=== PATIENT | female | born 1995 | race American Indian/Alaskan Native ===

== ENCOUNTER 2019-07-21 11:17 | Emergency (ER) | payer SELFPAY ==
[2019-07-21 11:41] VITALS: BP 112/52
[2019-07-21 13:52] LABS: Basophils # (Auto) 0.1 K/mm3 (0.0-0.1); Basophils % (Auto) 0.5 % (0.0-1.8); Eosinophils # (Auto) 0.2 K/mm3 (0.0-0.4); Eosinophils % (Auto) 1.5 % (0.0-4.3); Hemoglobin 9.5 gm/dl (10.1-14.3); Mean Corpuscular HGB Conc 31 % (30-34); Mean Corpuscular Volume 76 fl (79-97); Monocytes # (Auto) 0.8 K/mm3 (0.0-0.8); Monocytes % (Auto) 6.4 % (0.0-7.3); Platelet Count 239 K/mm3 (140-440); Red Blood Count 4.09 M/mm3 (3.65-5.03); Red Cell Distribution Width 19.2 % (13.2-15.2)
[2019-07-21 14:11] LABS: BUN/Creatinine Ratio 14; Blood Urea Nitrogen 11 mg/dL (7-17); Hemolysis Index 8
--- NOTE | 2019-07-21 15:56 | Ultrasound Report ---
ULTRASOUND OBSTETRIC INDICATION: , syncope. TECHNIQUE: Transabdominal and Transvaginal. COMPARISON: None available. FINDINGS: GESTATIONAL SAC: None seen. YOLK SAC: None seen. EMBRYO/FETUS: None seen. ADNEXA: No significant abnormality. FREE FLUID: None. ADDITIONAL FINDINGS: A probable uterine fundal fibroid measures 4.7 x 4.6 x 4.8 cm. IMPRESSION: 1. No sonographic evidence of an intrauterine or ectopic . 2. Probable uterine fibroid as above. Signer Name: Jarod Figueroa MD Signed: 07/21/2019 3:51 PM Workstation Name: [id number]
--- NOTE | 2019-07-21 16:32 | Emergency Department Report ---
ED General Adult HPI - General Chief complaint: Headache Stated complaint: FALL INJURY/HEADACHE Time Seen by Provider: 07/21/19 12:21 Source: patient Mode of arrival: Ambulatory Limitations: No Limitations - History of Present Illness Initial comments: Patient is a 23-year-old F [place] female states she had a syncopal episode yesterday while at work. Patient states she felt fine before arriving. She states she stood up and felt dizzy and the next thing she knew she was lying on the ground with people surrounding her. Patient was told that she did strike the back of her head. Patient has had a persistent mild headache since the incident. She denies any nausea vomiting diarrhea heavy periods. She does have a history of anemia but is not taking any medications at this time. - Related Data Allergies Allergy/AdvReac Type Severity Reaction Status Date / Time No Known Allergies Allergy Unverified 07/21/19 11:39 ED Review of Systems ROS: Stated complaint: FALL INJURY/HEADACHE Other details as noted in HPI Comment: All other systems reviewed and negative ED Past Medical Hx - Past Medical History Previous Medical History?: Yes Hx Asthma: Yes - Surgical History Past Surgical History?: Yes Additional Surgical History: Tonsilectomy - Social History Smoking Status: Current Every Day Smoker Substance Use Type: None ED Physical Exam - General Limitations: No Limitations General appearance: alert, in no apparent distress - Head Head exam: Present: atraumatic, normocephalic - Eye Eye exam: Present: normal appearance, PERRL, EOMI - ENT ENT exam: Present: mucous membranes moist - Neck Neck exam: Present: normal inspection, full ROM. Absent: tenderness - Respiratory Respiratory exam: Present: normal lung sounds bilaterally. Absent: respiratory distress, wheezes, rales, rhonchi - Cardiovascular Cardiovascular Exam: Present: regular rate, normal rhythm, normal heart sounds. Absent: systolic murmur, diastolic murmur, rubs, gallop - GI/Abdominal GI/Abdominal exam: Present: soft, normal bowel sounds - Extremities Exam Extremities exam: Present: normal inspection - Back Exam Back exam: Present: normal inspection - Neurological Exam Neurological exam: Present: alert, oriented X3 - Psychiatric Psychiatric exam: Present: normal affect, normal mood - Skin Skin exam: Present: warm, dry, intact, normal color. Absent: rash ED Course Vital Signs 07/21/19 11:40 Temperature 98.7 F Pulse Rate 82 Respiratory 18 Rate Blood Pressure 112/52 O2 Sat by Pulse 100 Oximetry - Reevaluation(s) Reevaluation #1: Patient's laboratory studies are within normal limits. Initially was going to do a CT of the patient's head considering that she has persistent headache since striking her head. Patient's test was positive and CT was canceled. Ultrasound showed no IUP at this time the patient likely is approximately 4 weeks given her beta quant. Patient's is likely the cause of the patient's syncope. 07/21/19 16:30 ED Medical Decision Making - Lab Data Result diagrams: 07/21/19 12:30 07/21/19 12:30 Lab Results 07/21/19 07/21/19 07/21/19 Range/Units 12:30 12:30 12:30 WBC 11.8 H (4.5-11.0) K/mm3 RBC 4.09 (3.65-5.03) M/mm3 Hgb 9.5 L (10.1-14.3) gm/dl Hct 31.0 (30.3-42.9) % MCV 76 L (79-97) fl MCH 23 L (28-32) pg MCHC 31 (30-34) % RDW 19.2 H (13.2-15.2) % Plt Count 239 (140-440) K/mm3 Lymph % (Auto) 17.0 (13.4-35.0) % Canyon % (Auto) 6.4 (0.0-7.3) % Eos % (Auto) 1.5 (0.0-4.3) % Baso % (Auto) 0.5 (0.0-1.8) % Lymph # 2.0 (1.2-5.4) K/mm3 Canyon # 0.8 (0.0-0.8) K/mm3 Eos # 0.2 (0.0-0.4) K/mm3 Baso # 0.1 (0.0-0.1) K/mm3 Seg Neutrophils % 74.6 H (40.0-70.0) % Seg Neutrophils # 8.8 H (1.8-7.7) K/mm3 Sodium 138 (137-145) mmol/L Potassium 3.9 (3.6-5.0) mmol/L Chloride 102.3 (98-107) mmol/L Carbon Dioxide 18 L (22-30) mmol/L Anion Gap 22 mmol/L BUN 11 (7-17) mg/dL Creatinine 0.8 (0.7-1.2) mg/dL Estimated GFR > 60 ml/min BUN/Creatinine Ratio 14 % Glucose 95 (65-100) mg/dL Calcium 9.0 (8.4-10.2) mg/dL HCG, Qual Positive (Negative) HCG, Quant (0-4) mIU/mL 07/21/19 Range/Units 12:30 WBC (4.5-11.0) K/mm3 RBC (3.65-5.03) M/mm3 Hgb (10.1-14.3) gm/dl Hct (30.3-42.9) % MCV (79-97) fl MCH (28-32) pg MCHC (30-34) % RDW (13.2-15.2) % Plt Count (140-440) K/mm3 Lymph % (Auto) (13.4-35.0) % Canyon % (Auto) (0.0-7.3) % Eos % (Auto) (0.0-4.3) % Baso % (Auto) (0.0-1.8) % Lymph # (1.2-5.4) K/mm3 Canyon # (0.0-0.8) K/mm3 Eos # (0.0-0.4) K/mm3 Baso # (0.0-0.1) K/mm3 Seg Neutrophils % (40.0-70.0) % Seg Neutrophils # (1.8-7.7) K/mm3 Sodium (137-145) mmol/L Potassium (3.6-5.0) mmol/L Chloride (98-107) mmol/L Carbon Dioxide (22-30) mmol/L Anion Gap mmol/L BUN (7-17) mg/dL Creatinine (0.7-1.2) mg/dL Estimated GFR ml/min BUN/Creatinine Ratio % Glucose (65-100) mg/dL Calcium (8.4-10.2) mg/dL HCG, Qual (Negative) HCG, Quant 1825 H (0-4) mIU/mL - Radiology Data Radiology results: image reviewed (No IUP found) - Medical Decision Making Patient is been encouraged to hydrate well. Patient given SHOT BLASTER for follow-up. Critical care attestation.: If time is entered above; I have spent that time in minutes in the direct care of this critically ill patient, excluding procedure time. ED Disposition Clinical Impression: Syncope and collapse Qualifiers: Weeks of gestation: less than 8 weeks Qualified Code(s): Z3A.01 - Less than 8 weeks gestation of Closed head injury Qualifiers: Encounter type: initial encounter Qualified Code(s): S09.90XA - Unspecified injury of head, initial encounter Disposition: DC- TO HOME OR SELFCARE Is pt being admited?: No Does the pt Need Aspirin: No Condition: Stable Instructions: Syncope (ED), (ED), Minor Head Injury (ED) Referrals: PRIMARY CARE, [Primary Care Provider] - 3-5 Days Time of Disposition: 16:33
== END 2019-07-21 17:14 | disposition home or self-care (01) ==
LOC: ED 11:17
DX: O26.891 Other specified pregnancy related conditions, first trimester (principal); O99.331 Smoking (tobacco) complicating pregnancy, first trimester; O99.511 Diseases of the respiratory system complicating pregnancy, first trimester; S09.90XA Unspecified injury of head, initial encounter; R55 Syncope and collapse; J45.909 Unspecified asthma, uncomplicated; Z90.49 Acquired absence of other specified parts of digestive tract; Z79.899 Other long term (current) drug therapy; Z3A.01 Less than 8 weeks gestation of pregnancy; W18.30XA Fall on same level, unspecified, initial encounter; Y93.89 Activity, other specified; Y92.89 Other specified places as the place of occurrence of the external cause; Y99.8 Other external cause status
CPT/HCPCS: 36415; 76801; 76817; 80048; 84702; 84703; 85025

== ENCOUNTER 2020-02-15 07:22 | Emergency (ER) | payer MEDICAID ==
[2020-02-15 07:29] VITALS: BP 150/89
[2020-02-15 08:08] LABS: Basophils # (Auto) 0.1 K/mm3 (0.0-0.1); Basophils % (Auto) 0.6 % (0.0-1.8); Eosinophils # (Auto) 0.2 K/mm3 (0.0-0.4); Hematocrit 32.7 % (30.3-42.9); Hemoglobin 10.5 gm/dl (10.1-14.3); Lymphocytes # (Auto) 1.8 K/mm3 (1.2-5.4); Lymphocytes % (Auto) 19.1 % (13.4-35.0); Mean Corpuscular HGB Conc 32 % (30-34); Mean Corpuscular Volume 82 fl (79-97); Monocytes # (Auto) 0.6 K/mm3 (0.0-0.8); Monocytes % (Auto) 6.7 % (0.0-7.3); Platelet Count 245 K/mm3 (140-440); Red Blood Count 3.98 M/mm3 (3.65-5.03); Red Cell Distribution Width 17.5 % (13.2-15.2)
[2020-02-15 08:28] LABS: BUN/Creatinine Ratio 11; Blood Urea Nitrogen 10 mg/dL (7-17); Calcium 9.1 mg/dL (8.4-10.2); Hemolysis Index 2
[2020-02-15 09:19] LABS: Bacteria,Urine 1+ /HPF (Negative); Bilirubin,Urine NEG (Negative); Blood,Urine NEG (Negative); Color,Urine Yellow (Yellow); Mucus,Urine 3+ /HPF; Protein,Urine <15 mg/dL mg/dL (Negative)
[2020-02-15 09:21] LABS: HCG Qualitative,Urine Negative (Negative)
--- NOTE | 2020-02-15 10:08 | Cat Scan Report ---
NONENHANCED CT SCAN OF THE HEAD: INDICATION / CLINICAL INFORMATION: 24 years Female; headache, dizziness, visual changes. TECHNIQUE: Routine CT head without contrast. All CT scans at this location are performed using CT dos e reduction for ALARA by means of automated exposure control. COMPARISON: None. FINDINGS: BRAIN / INTRACRANIAL CONTENTS: No acute hemorrhage, mass effect, midline shift, hydrocephalus, or acu te, large territorial infarct. No chronic infarct or focal atrophy. Normal brain volume and ventricul ar/sulcal size for age. No significant white matter abnormality. CRANIOCERVICAL JUNCTION: No significant abnormality. ORBITS: No significant abnormality of visualized orbits. SINUSES / MASTOIDS: No significant abnormality of the visualized paranasal sinuses or mastoid air tamy ls. ADDITIONAL FINDINGS: None. IMPRESSION: Normal nonenhanced CT scan of the brain Signer Name: Janny Ramos MD Signed: 02/15/2020 10:03 AM Workstation Name: [email or web address]
--- NOTE | 2020-02-15 11:29 | Emergency Department Report ---
ED Headache HPI - General Chief Complaint: Headache Stated Complaint: HEADACHE,NAUSEA,ABD PAIN Time Seen by Provider: 02/15/20 09:16 - History of Present Illness Initial Comments: 24-year-old obese [place] female just emerged from complaining of a 1 week history of waxing and waning headaches of unknown etiology the headaches varies based on severity but sometimes gets to the point where it stops her from driving she has diplopia. Headaches are sometimes associated with with dizziness and mild visual changes she reports no fever, no nausea, no vomiting, no chest pain or palpitations. No neck pain, no trauma. Timing/Duration: 1 week Quality: mild, moderate Head Injury Location: parietal Associated Symptoms: vision changes, other (dizziness). denies: facial pain, fever/chills, nausea/vomiting, nasal congestion, seizures, stiff neck Allergies/Adverse Reactions: Allergies No Known Allergies Allergy (Unverified 07/21/19 11:39) Home Medications: Ambulatory Orders Butalb/Acetaminophen/Caffeine [Fioricet 50-300-40 mg CAP] 1 cap PO Q6HR PRN #14 cap 02/15/20 ED Review of Systems ROS: Stated complaint: HEADACHE,NAUSEA,ABD PAIN Other details as noted in HPI Comment: All other systems reviewed and negative ED Past Medical Hx - Past Medical History Previous Medical History?: Yes Hx Asthma: Yes - Surgical History Past Surgical History?: Yes Additional Surgical History: Tonsilectomy - Social History Smoking Status: Light Tobacco Smoker Substance Use Type: Alcohol - Medications Home Medications: Home Medications Medication Instructions Recorded Confirmed Last Taken Type Butalb/Acetaminophen/Caffeine 1 cap PO Q6HR PRN #14 cap 02/15/20 Unknown Rx [Fioricet 50-300-40 mg CAP] ED Physical Exam - General Limitations: No Limitations General appearance: alert, in no apparent distress - Head Head exam: Present: atraumatic, normocephalic - Eye Eye exam: Present: normal appearance - ENT ENT exam: Present: mucous membranes moist - Neck Neck exam: Present: normal inspection - Respiratory Respiratory exam: Present: normal lung sounds bilaterally. Absent: respiratory distress - Cardiovascular Cardiovascular Exam: Present: regular rate, normal rhythm. Absent: systolic murmur, diastolic murmur, rubs, gallop - GI/Abdominal GI/Abdominal exam: Present: soft, normal bowel sounds - Extremities Exam Extremities exam: Present: normal inspection - Back Exam Back exam: Present: normal inspection - Neurological Exam Neurological exam: Present: alert, oriented X3 - Psychiatric Psychiatric exam: Present: normal affect, normal mood - Skin Skin exam: Present: warm, dry, intact, normal color. Absent: rash ED Course Vital Signs 02/15/20 07:27 Temperature 98.0 F Pulse Rate 76 Respiratory 20 Rate Blood Pressure 150/89 O2 Sat by Pulse 99 Oximetry ED Medical Decision Making - Lab Data Result diagrams: 02/15/20 07:41 02/15/20 07:41 - Medical Decision Making This patient presents with a headache most consistent with migraine. Differential diagnosis includes migraine versus tension type headache. No headache red flags. Neurologic exam without evidence of meningismus, focal neurologic findings.Based on the patient's history and physical there is very low clinical suspicion for significant intracranial pathology. The headache was NOT sudden onset, NOT maximal at onset, there are NO neurologic findings, the patient does NOT have a fever, the patient does NOT have any jaw claudication, the patient does NOT endorse a clotting disorder, patient DENIES any trauma or eye pain and the headache is NOT associated with dizziness or ataxia. Presentation not consistent with acute intracranial bleed to include SAH (lack of risk factors, headache history). Presentation not consistent with acute COMMERCIAL DIRECTOR infection to include meningitis or brain abscess, Temporal arteritis unlikely, as is acute angle closure glaucoma given history and physical findings. Presentation not consistent with other acute, emergent causes of headache at this time. Plan to treat symptomatically with pain medication. No indication for imaging/LP at this time. Plan: pain medication,, serial reassessment Critical care attestation.: If time is entered above; I have spent that time in minutes in the direct care of this critically ill patient, excluding procedure time. ED Disposition Clinical Impression: Cephalgia Disposition: DC-01 TO HOME OR SELFCARE Is pt being admited?: No Does the pt Need Aspirin: No Condition: Stable Instructions: Migraine Headache, [id number], General Headache Without Cause, Cervicogenic Headache Prescriptions: Butalb/Acetaminophen/Caffeine [Fioricet 50-300-40 mg CAP] 1 cap PO Q6HR PRN #14 cap PRN Reason: headache Referrals: PRIMARY CARE, [Primary Care Provider] - 3-5 Days [facility] [Provider Group] - 3-5 Days
[2020-02-15] MEDS ORDERED: oxyCODONE /ACETAMINOPHEN 5-325MG TAB PO ONE (11:31)
== END 2020-02-15 12:17 | disposition home or self-care (01) ==
LOC: ED 07:22
DX: R51.9 Headache, unspecified (principal); J45.909 Unspecified asthma, uncomplicated; F17.200 Nicotine dependence, unspecified, uncomplicated; Z98.890 Other specified postprocedural states; Z79.899 Other long term (current) drug therapy
CPT/HCPCS: 36415; 70450; 80048; 81001; 81025; 84703; 85025

== ENCOUNTER 2021-03-15 04:12 | Emergency (ER) | payer MEDICAID ==
[2021-03-15 04:58] LABS: Basophils # (Auto) 0.1 K/mm3 (0.0-0.1); Basophils % (Auto) 0.4 % (0.0-1.8); Eosinophils % (Auto) 0.1 % (0.0-4.3); Hematocrit 31.8 % (30.3-42.9); Hemoglobin 9.9 gm/dl (10.1-14.3); Lymphocytes # (Auto) 1.4 K/mm3 (1.2-5.4); Lymphocytes % (Auto) 8.3 % (13.4-35.0); Mean Corpuscular HGB Conc 31 % (30-34); Mean Corpuscular Volume 84 fl (79-97); Monocytes # (Auto) 0.5 K/mm3 (0.0-0.8); Monocytes % (Auto) 3.1 % (0.0-7.3); Platelet Count 230 K/mm3 (140-440); Red Blood Count 3.78 M/mm3 (3.65-5.03); Red Cell Distribution Width 15.8 % (13.2-15.2)
[2021-03-15] MEDS ORDERED: SODIUM CHLORIDE 0.9% 1000 ML 1,000 ML IV ONE (04:59)
[2021-03-15 05:06] LABS: BUN/Creatinine Ratio 8; Blood Urea Nitrogen 7 mg/dL (7-17); Calcium 8.8 mg/dL (8.4-10.2); Hemolysis Index 1
--- NOTE | 2021-03-15 05:06 | Emergency Department Report ---
<GRETCHEN ALEMAN - Last Filed: 03/15/21 06:42> ED Abdominal Pain HPI - General Chief Complaint: Abdominal Pain Stated Complaint: ABDOMINAL PAIN Source: EMS Mode of arrival: Stretcher Limitations: No Limitations - History of Present Illness Initial Comments: 25-year-old -[place] female presents to the emergency room complaining of abdominal pain that she has had all day. Patient states movement makes it worse. She admits to nausea no vomiting. Patient does admit that she smokes marijuana and black in miles and socially drinks. She does admit to a headache. She has been taken ibuprofen daily because of injury. She denies any dysuria, diarrhea or constipation. MD Complaint: abdominal pain Onset/Timin -: hour(s) Location: RUQ, epigastric Radiation: none Severity scale (0 -10): 9 Quality: stabbing, sharp Consistency: constant Improves With: nothing Worsens With: movement Associated Symptoms: nausea. denies: vomiting, diarrhea, fever, constipation, dysuria, hematemesis, hematochezia, melena, hematuria - Related Data Previous Rx's Medication Instructions Recorded Last Taken Type Butalb/Acetaminophen/Caffeine 1 cap PO Q6HR PRN #14 cap 02/15/20 Unknown Rx [Fioricet 50-300-40 mg CAP] Ciprofloxacin HCl 500 mg PO BID #14 tablet 03/15/21 Unknown Rx Ondansetron [Zofran Odt] 4 mg PO Q8HR PRN #12 tab.rapdis 03/15/21 Unknown Rx metroNIDAZOLE [Flagyl] 500 mg PO Q12HR #14 tab 03/15/21 Unknown Rx Allergies Allergy/AdvReac Type Severity Reaction Status Date / Time No Known Allergies Allergy Verified 03/15/21 04:16 ED Review of Systems Comment: All other systems reviewed and negative ED Past Medical Hx - Past Medical History Hx Asthma: Yes - Surgical History Additional Surgical History: Tonsilectomy - Social History Smoking Status: Light Tobacco Smoker Substance Use Type: Alcohol - Medications Home Medications: Home Medications Medication Instructions Recorded Confirmed Last Taken Type Butalb/Acetaminophen/Caffeine 1 cap PO Q6HR PRN #14 cap 02/15/20 Unknown Rx [Fioricet 50-300-40 mg CAP] Ciprofloxacin HCl 500 mg PO BID #14 tablet 03/15/21 Unknown Rx Ondansetron [Zofran Odt] 4 mg PO Q8HR PRN #12 tab.rapdis 03/15/21 Unknown Rx metroNIDAZOLE [Flagyl] 500 mg PO Q12HR #14 tab 03/15/21 Unknown Rx ED Physical Exam - General Limitations: No Limitations General appearance: alert, in no apparent distress - Head Head exam: Present: atraumatic, normocephalic - Eye Eye exam: Present: normal appearance - ENT ENT exam: Present: mucous membranes moist - Neck Neck exam: Present: normal inspection - Respiratory Respiratory exam: Present: normal lung sounds bilaterally. Absent: respiratory distress - Cardiovascular Cardiovascular Exam: Present: regular rate, normal rhythm. Absent: systolic murmur, diastolic murmur, rubs, gallop - GI/Abdominal GI/Abdominal exam: Present: soft, tenderness (Epigastric and right upper quadrant), guarding, normal bowel sounds - Extremities Exam Extremities exam: Present: normal inspection, full ROM - Back Exam Back exam: Present: normal inspection - Neurological Exam Neurological exam: Present: alert, oriented X3 - Psychiatric Psychiatric exam: Present: normal affect, normal mood - Skin Skin exam: Present: warm, dry, intact, normal color. Absent: rash ED Medical Decision Making - Lab Data Result diagrams: 03/15/21 04:40 03/15/21 04:40 - Radiology Data Radiology results: report reviewed [address] [address] Ultrasound Report Signed Patient: MARIO ZUNIGA MR#: [id number] : 1995 Acct:[id number] Age/Sex: 25 / F ADM Date: 03/15/21 Loc: ED Attending Dr: Ordering Physician: NUPUR HONG Date of Service: 03/15/21 Procedure(s): US abdomen complete Accession Number(s): [id number] cc: NUPUR HONG ULTRASOUND ABDOMEN, COMPLETE INDICATION / CLINICAL INFORMATION: Epigastric and ruq ttp, pain. COMPARISON: None available. FINDINGS: PANCREAS: Visualized portions of the pancreas are within normal limits. ABDOMINAL AORTA: No significant abnormality. IVC: No significant abnormality. LIVER: Liver measures 16.9 cm. The liver demonstrates a normal echogenicity and morphology. PORTAL VEIN: Normal hepatopedal blood flow in the main portal vein. GALLBLADDER: The gallbladder is unremarkable. There is no cholelithiasis, gallbladder wall thickening, or pericholecystic fluid. BILE DUCTS: Common bile duct measures 4 mm. No significant abnormality. KIDNEYS: Right: No significant abnormality. Left: No significant abnormality. SPLEEN: No significant abnormality. FREE FLUID: None. ADDITIONAL FINDINGS: None. IMPRESSION: 1. No significant sonographic abnormality of the abdomen. Signer Name: Rosana Reese MD Signed: 03/15/2021 6:33 AM Workstation Name: [id number] Transcribed By: DANY Dictated By: ROSANA REESE MD Electronically Authenticated By: ROSANA REESE MD Signed Date/Time: 03/15/21632 DD/ 1 TD/TT: - Medical Decision Making 25-year-old -[place]ian female presents to the emergency room complaining of abdominal pain that she has had all day. Patient states movement makes it worse. She admits to nausea no vomiting. Patient does admit that she smokes marijuana and black in miles and socially drinks. She does admit to a headache. She has been taken ibuprofen daily because of injury. She denies any dysuria, diarrhea or constipation. CBC CMP hCG urinalysis lipase INT normal saline Zofran ultrasound has been ordered. The patient's care has been transferred to and accepted by Garrison Dietz. We discussed: The patient's chief complaints; labs and imaging that have been completed and those that are still pending; any treatment provided and the patient's response to treatment; any significant change in condition; the treatment plan prior to the transfer of care. The accepting provider will follow up on all pending labs and imaging and make any necessary changes to the current impression and/or treatment plan. The accepting physician/midlevel is now responsible for the patient's care and final disposition. ED Disposition Clinical Impression: Enterocolitis Nausea & vomiting Qualifiers: Vomiting type: unspecified Qualified Code(s): R11.2 - Nausea with vomiting, unspecified Abdominal pain Qualifiers: Abdominal location: unspecified location Qualified Code(s): R10.9 - Unspecified abdominal pain UTI (urinary tract infection) Qualifiers: Urinary tract infection type: site unspecified Hematuria presence: without hematuria Qualified Code(s): N39.0 - Urinary tract infection, site not specified Disposition: 01 HOME / SELF CARE / HOMELESS Condition: Stable Instructions: Abdominal Pain, Adult, Nausea and Vomiting, Adult, Ciprofloxacin tablets, Metronidazole tablets or capsules, Abdominal Pain (ED) Additional Instructions: Follow-up with a primary care and parts salesperson doctor in 3-5 days or if symptoms worsen and continue return to emergency room as soon as possible. As instructed to you, while taking these medications do not drink any alcohol or perform any strenuous activities. Prescriptions: Ciprofloxacin HCl 500 mg PO BID #14 tablet metroNIDAZOLE [Flagyl] 500 mg PO Q12HR #14 tab Ondansetron [Zofran Odt] 4 mg PO Q8HR PRN #12 tab.rapdis PRN Reason: Nausea Referrals: PRIMARY MD [facility] [Primary Care Provider] - 3-5 Days TIFFANY ENGLE MD [Staff Physician] - 3-5 Days [facility] [Provider Group] - 3-5 Days Forms: Work/School Release Form(ED) <GARRISON RENTERIA - Last Filed: 03/15/21 14:17> ED Review of Systems ROS: Stated complaint: ABDOMINAL PAIN Other details as noted in HPI ED Course Vital Signs 03/15/21 03/15/21 03/15/21 04:15 06:54 13:29 Temperature 99.3 F Pulse Rate 92 H 84 Respiratory 18 16 14 Rate Blood Pressure 145/82 152/77 [Left] O2 Sat by Pulse 99 100 Oximetry - Reevaluation(s) Reevaluation #1: 03/15/21 07:57 At this time, patient is resting comfortably with no acute signs of distress. Pain is under control. CT scan has been reviewed and patient is notified of the results. At this time I will order Levaquin and Flagyl. A p.o. challenge will also be obtained. Will reevaluate patient and if able to keep p.o. challenge vital signs stable with pain under control I will discharge patient with appropriate follow-up. ED Medical Decision Making - Lab Data Result diagrams: 03/15/21 04:40 03/15/21 04:40 - Radiology Data [facility] [address] [place] [address] Cat Scan Report Signed Patient: MARIO ZUNIGA MR#: [id number] : 1995 Acct:[id number] Age/Sex: 25 / F ADM Date: 03/15/21 Loc: ED Attending Dr: Ordering Physician: NUPUR HONG Date of Service: 03/15/21 Procedure(s): CT abdomen pelvis w con Accession Number(s): [id number] cc: NUPUR HONG CT abdomen pelvis w con INDICATION / CLINICAL INFORMATION: abd pain.. TECHNIQUE: Axial CT images were obtained through the abdomen and pelvis after 100 cc of Omnipaque [address] scans at this location are performed using CT dose reduction for ALARA by means of automated exposure control. COMPARISON: None available. FINDINGS: LOWER CHEST: No significant abnormality LIVER: No significant abnormality GALLBLADDER/BILIARY TREE: No significant abnormality PANCREAS: No significant abnormality SPLEEN: No significant abnormality ADRENALS: No significant abnormality KIDNEYS / URETER: No significant abnormality URINARY BLADDER: No significant abnormality REPRODUCTIVE ORGANS: No significant abnormality STOMACH / BOWEL: Stomach is unremarkable. Mild fluid-filled small bowel within the left abdomen. Mild pericolonic inflammatory stranding involving the ascending colon. No significant colonic wall thickening. The ascending colon is fluid-filled. No extraluminal fluid or gas identified. The appendix is normal. LYMPH NODES: No significant adenopathy. VASCULATURE: No significant abnormality. OTHER: No free air, free fluid, or focal fluid collection is identified. SKELETAL SYSTEM: No acute osseous findings. IMPRESSION: 1. A few loops of fluid-filled small bowel noted within the left abdomen with moderate amount of fluid within the ascending colon and mild pericolonic inflammatory stranding. Findings are suspicious for a mild infectious or inflammatory enterocolitis. 2. No other acute abnormality. Signer Name: Rosana Reese MD Signed: 03/15/2021 7:47 AM Workstation Name: [id number] Transcribed By: DANY Dictated By: ROSANA REESE MD Electronically Authenticated By: ROSANA REESE MD Signed Date/Time: 03/15/21746 DD/ 6 TD/TT: - Medical Decision Making Patient was originally seen by Britany Huang and signed out to me for pending CT scan. CT of abdomen obtained and dictated by the radiologist. Patient is notified of the report with no questions noted by the patient. Vital signs are stable prior to discharge. Patient received medical treatment in the ED which patient stated symptoms has resovled and subsided. Was instructed note to operate any machinery due to possible drowsiness and stated someone will drive the patient home. A by mouth challenge has been obtained and patient tolerated well with no nausea vomiting. Patient was also instructed to Follow-up with a primary care and parts salesperson doctor in 3-5 days or if symptoms worsen and continue return to emergency room as soon as possible. At time of discharge, the patient does not seem toxic or ill in appearance. No acute signs of distress noted. Patient agrees to discharge treatment plan of care. No further questions noted by the patient. Critical care attestation.: If time is entered above; I have spent that time in minutes in the direct care of this critically ill patient, excluding procedure time. ED Disposition Is pt being admited?: No Does the pt Need Aspirin: No Time of Disposition: 12:59
[2021-03-15 05:11] LABS: Alanine Aminotransferase < 5 units/L (7-56)
[2021-03-15 06:37] LABS: Bilirubin,Urine NEG (Negative); Blood,Urine NEG (Negative); Color,Urine Yellow (Yellow); Mucus,Urine FEW /HPF; Protein,Urine <15 mg/dL mg/dL (Negative)
--- NOTE | 2021-03-15 06:38 | Ultrasound Report ---
ULTRASOUND ABDOMEN, COMPLETE INDICATION / CLINICAL INFORMATION: Epigastric and ruq ttp, pain. COMPARISON: None available. FINDINGS: PANCREAS: Visualized portions of the pancreas are within normal limits. ABDOMINAL AORTA: No significant abnormality. IVC: No significant abnormality. LIVER: Liver measures 16.9 cm. The liver demonstrates a normal echogenicity and morphology. PORTAL VEIN: Normal hepatopedal blood flow in the main portal vein. GALLBLADDER: The gallbladder is unremarkable. There is no cholelithiasis, gallbladder wall thickening , or pericholecystic fluid. BILE DUCTS: Common bile duct measures 4 mm. No significant abnormality. KIDNEYS: Right: No significant abnormality. Left: No significant abnormality. SPLEEN: No significant abnormality. FREE FLUID: None. ADDITIONAL FINDINGS: None. IMPRESSION: 1. No significant sonographic abnormality of the abdomen. Signer Name: Keanu Reese MD Signed: 03/15/2021 6:33 AM Workstation Name: [id number]
[2021-03-15] MEDS ORDERED: MORPHINE 4 MG/1 ML INJ IV ONE (06:44)
[2021-03-15] MEDS ORDERED: ONDANSETRON 4 MG/2 ML INJ IV ONE (06:44)
--- NOTE | 2021-03-15 07:51 | Cat Scan Report ---
CT abdomen pelvis w con INDICATION / CLINICAL INFORMATION: abd pain.. TECHNIQUE: Axial CT images were obtained through the abdomen and pelvis after 100 cc of Omnipaque [address] scans at this location are performed using CT dose reduction for ALARA by means of automated exposure control. COMPARISON: None available. FINDINGS: LOWER CHEST: No significant abnormality LIVER: No significant abnormality GALLBLADDER/BILIARY TREE: No significant abnormality PANCREAS: No significant abnormality SPLEEN: No significant abnormality ADRENALS: No significant abnormality KIDNEYS / URETER: No significant abnormality URINARY BLADDER: No significant abnormality REPRODUCTIVE ORGANS: No significant abnormality STOMACH / BOWEL: Stomach is unremarkable. Mild fluid-filled small bowel within the left abdomen. Mild pericolonic inflammatory stranding involving the ascending colon. No significant colonic wall thicke sharon. The ascending colon is fluid-filled. No extraluminal fluid or gas identified. The appendix is n ormal. LYMPH NODES: No significant adenopathy. VASCULATURE: No significant abnormality. OTHER: No free air, free fluid, or focal fluid collection is identified. SKELETAL SYSTEM: No acute osseous findings. IMPRESSION: 1. A few loops of fluid-filled small bowel noted within the left abdomen with moderate amount of flui d within the ascending colon and mild pericolonic inflammatory stranding. Findings are suspicious for a mild infectious or inflammatory enterocolitis. 2. No other acute abnormality. Signer Name: Keanu Reese MD Signed: 03/15/2021 7:47 AM Workstation Name: [id number]
[2021-03-15] MEDS ORDERED: metroNIDAZOLE/NS 500 MG/100 ML 500 MG/100 ML BAG IV ONE ×2 (07:54→11:58)
[2021-03-15] MEDS ORDERED: metroNIDAZOLE 500 MG TAB PO NR (13:00)
[2021-03-15 13:30] VITALS: BP 152/77
== END 2021-03-15 13:30 | disposition home or self-care (01) ==
LOC: ED 04:12
DX: R11.2 Nausea with vomiting, unspecified (principal); R10.9 Unspecified abdominal pain; N39.0 Urinary tract infection, site not specified; J45.909 Unspecified asthma, uncomplicated
CPT/HCPCS: 36415; 74177; 76700; 80053; 81001; 83690; 84703; 85025; 87086; 96361; 96365; 96375; 99284; J1956; J2270; J2405; J7030; Q9967; Q0162

== ENCOUNTER 2021-03-24 19:02 | Emergency (ER) | payer MEDICAID ==
[2021-03-24 20:48] VITALS: BP 129/80
[2021-03-24 21:19] LABS: HCG Qualitative,Urine Negative (Negative)
[2021-03-24 21:22] LABS: Bilirubin,Urine NEG (Negative); Blood,Urine NEG (Negative); Color,Urine Yellow (Yellow); Mucus,Urine 3+ /HPF; Protein,Urine <15 mg/dL mg/dL (Negative); Urobilinogen,Urine < 2.0 mg/dL (<2.0)
[2021-03-24 21:24] LABS: Hematocrit 34.1 % (30.3-42.9); Hemoglobin 10.6 gm/dl (10.1-14.3); Mean Corpuscular HGB Conc 31 % (30-34); Mean Corpuscular Volume 84 fl (79-97); Platelet Count 463 K/mm3 (140-440); Red Blood Count 4.04 M/mm3 (3.65-5.03); Red Cell Distribution Width 15.9 % (13.2-15.2)
[2021-03-24 21:42] LABS: BUN/Creatinine Ratio 6; Blood Urea Nitrogen 5 mg/dL (7-17); Calcium 9.3 mg/dL (8.4-10.2); Hemolysis Index 3
[2021-03-24] MEDS ORDERED: SODIUM CHLORIDE 0.9% 1000 ML 1,000 ML IV ONE (22:01)
[2021-03-24] MEDS ORDERED: KETOROLAC 30 MG/1 ML INJ IV ONE (22:01)
[2021-03-24] MEDS ORDERED: cefTRIAXone/NS 1 GM/50 ML 1 GM/50 ML BAG IV ONE (22:01)
--- NOTE | 2021-03-24 22:08 | Emergency Department Report ---
ED Abdominal Pain HPI - General Chief Complaint: Abdominal Pain Stated Complaint: ABDOMINAL PAIN Time Seen by Provider: 03/24/21 22:00 Source: patient Mode of arrival: Ambulatory Limitations: No Limitations - History of Present Illness Initial Comments: Patient 25-year-old female treated for enterocolitis on 03/15/2021 patient states she completed all her meds however had bilateral flank pain radiating to suprapubic patient denies fevers or chills there is no nausea vomiting patient is tolerating p.o. intake at this time. She does have urinary frequency urgency and dysuria. There is no hematuria. Patient is with current menses last menstrual cycle 1 month ago. Patient denies vaginal discharge no suspicious for STI. Patient denies other exacerbating or relieving factors. MD Complaint: abdominal pain, flank pain - Related Data Previous Rx's Medication Instructions Recorded Last Taken Type Butalb/Acetaminophen/Caffeine 1 cap PO Q6HR PRN #14 cap 02/15/20 Unknown Rx [Fioricet 50-300-40 mg CAP] Ciprofloxacin HCl 500 mg PO BID #14 tablet 03/15/21 Unknown Rx Ondansetron [Zofran Odt] 4 mg PO Q8HR PRN #12 tab.rapdis 03/15/21 Unknown Rx metroNIDAZOLE [Flagyl] 500 mg PO Q12HR #14 tab 03/15/21 Unknown Rx Sulfamethoxazole/Trimethoprim 1 each PO BID 7 Days #14 tablet 03/25/21 Unknown Rx [Bactrim DS TAB] Allergies Allergy/AdvReac Type Severity Reaction Status Date / Time No Known Allergies Allergy Verified 03/15/21 04:16 ED Review of Systems ROS: Stated complaint: ABDOMINAL PAIN Other details as noted in HPI Constitutional: denies: chills, fever Eyes: denies: eye pain, eye discharge, vision change ENT: denies: ear pain, throat pain Respiratory: denies: cough, shortness of breath, wheezing Cardiovascular: as per HPI Endocrine: no symptoms reported Gastrointestinal: abdominal pain, nausea. denies: vomiting, diarrhea, constipation, melena Genitourinary: urgency, dysuria, frequency. denies: hematuria, discharge Musculoskeletal: back pain Skin: denies: rash, lesions Neurological: denies: headache, weakness, paresthesias Psychiatric: denies: anxiety, depression Hematological/Lymphatic: denies: easy bleeding, easy bruising ED Past Medical Hx - Past Medical History Previous Medical History?: Yes Hx Asthma: Yes - Surgical History Past Surgical History?: No Additional Surgical History: Tonsilectomy - Social History Smoking Status: Light Tobacco Smoker Substance Use Type: Alcohol - Medications Home Medications: Home Medications Medication Instructions Recorded Confirmed Last Taken Type Butalb/Acetaminophen/Caffeine 1 cap PO Q6HR PRN #14 cap 02/15/20 Unknown Rx [Fioricet 50-300-40 mg CAP] Ciprofloxacin HCl 500 mg PO BID #14 tablet 03/15/21 Unknown Rx Ondansetron [Zofran Odt] 4 mg PO Q8HR PRN #12 tab.rapdis 03/15/21 Unknown Rx metroNIDAZOLE [Flagyl] 500 mg PO Q12HR #14 tab 03/15/21 Unknown Rx Sulfamethoxazole/Trimethoprim 1 each PO BID 7 Days #14 tablet 03/25/21 Unknown Rx [Bactrim DS TAB] ED Physical Exam - General Limitations: No Limitations General appearance: alert, in no apparent distress - Head Head exam: Present: atraumatic, normocephalic - Eye Eye exam: Present: EOMI Pupils: Present: normal accommodation - ENT ENT exam: Present: mucous membranes moist - Neck Neck exam: Present: normal inspection, full ROM. Absent: tenderness - Respiratory Respiratory exam: Present: normal lung sounds bilaterally. Absent: respiratory distress, wheezes, stridor, chest wall tenderness - Cardiovascular Cardiovascular Exam: Present: regular rate, normal rhythm, normal heart sounds. Absent: systolic murmur, diastolic murmur, rubs, gallop - GI/Abdominal GI/Abdominal exam: Present: soft, tenderness (Bilateral lower abdomen mild tenderness to suprapubic region), normal bowel sounds. Absent: distended, guarding, rebound, rigid, bruit, hernia - Expanded GI/Abdominal Exam Expanded GI/Abdominal exam: Absent: psoas sign, obturator sign, heel tap sign, Adrian's sign, Rovsing's sign, tenderness at Mcburney's Point, ascites - Rectal Rectal exam: Present: deferred - External exam: Present: other (Deferred) - Extremities Exam Extremities exam: Present: normal inspection, full ROM. Absent: tenderness - Back Exam Back exam: Present: normal inspection, full ROM. Absent: CVA tenderness (R), CVA tenderness (L) - Neurological Exam Neurological exam: Present: alert, oriented X3, CN II-XII intact, normal gait - Psychiatric Psychiatric exam: Present: normal affect, normal mood - Skin Skin exam: Present: warm, dry, intact, normal color. Absent: rash ED Course Vital Signs 03/24/21 20:44 Temperature 98.3 F Pulse Rate 80 Respiratory 16 Rate Blood Pressure 129/80 [Left] O2 Sat by Pulse 100 Oximetry ED Medical Decision Making - Lab Data Result diagrams: 03/24/21 21:05 03/24/21 21:05 Labs 03/24/21 03/24/21 03/24/21 21:01 21:05 21:05 WBC 20.8 H RBC 4.04 Hgb 10.6 Hct 34.1 MCV 84 MCH 26 L MCHC 31 RDW 15.9 H Plt Count 463 H Sodium 136 L Potassium 4.1 Chloride 101.3 Carbon Dioxide 23 Anion Gap 16 BUN 5 L Creatinine 0.9 Estimated GFR > 60 BUN/Creatinine Ratio 6 Glucose 99 Calcium 9.3 Amylase 60 Lipase 13 Urine Color Yellow Urine Turbidity Slightly-cloudy Urine pH 5.0 Ur Specific [place] 1.019 Urine Protein <15 mg/dl Urine Glucose (UA) Neg Urine Ketones Neg Urine Blood Neg Urine Nitrite Neg Ur Reducing Substances Not Reportable Urine Bilirubin Neg Urine Ictotest Not Reportable Urine Urobilinogen < 2.0 Ur Leukocyte Esterase Lg Urine WBC (Auto) 50.0 H Urine RBC (Auto) 2.0 U Epithel Cells (Auto) 27.0 H Urine Mucus 3+ Urine HCG, Qual Negative - Radiology Data Radiology results: report reviewed, image reviewed from 03/15/2021 CT abdomen pelvis w con INDICATION / CLINICAL INFORMATION: abd pain.. TECHNIQUE: Axial CT images were obtained through the abdomen and pelvis after 100 cc of Omnipaque [address] scans at this location are performed using CT dose reduction for ALARA by means of automated exposure control. COMPARISON: None available. FINDINGS: LOWER CHEST: No significant abnormality LIVER: No significant abnormality GALLBLADDER/BILIARY TREE: No significant abnormality PANCREAS: No significant abnormality SPLEEN: No significant abnormality ADRENALS: No significant abnormality KIDNEYS / URETER: No significant abnormality URINARY BLADDER: No significant abnormality REPRODUCTIVE ORGANS: No significant abnormality STOMACH / BOWEL: Stomach is unremarkable. Mild fluid-filled small bowel within the left abdomen. Mild pericolonic inflammatory stranding involving the ascending colon. No significant colonic wall thickening. The ascending colon is fluid-filled. No extraluminal fluid or gas identified. The appendix is normal. LYMPH NODES: No significant adenopathy. VASCULATURE: No significant abnormality. OTHER: No free air, free fluid, or focal fluid collection is identified. SKELETAL SYSTEM: No acute osseous findings. IMPRESSION: 1. A few loops of fluid-filled small bowel noted within the left abdomen with moderate amount of fluid within the ascending colon and mild pericolonic inflammatory stranding. Findings are suspicious for a mild infectious or inflammatory enterocolitis. 2. No other acute abnormality. Signer Name: Rosana Alvarado MD Signed: 03/15/2021 7:47 AM Workstation Name: [id number] Transcribed By: JS Dictated By: ROSANA ALVARADO MD Electronically Authenticated By: ROSANA ALVARADO MD Signed Date/Time: 03/15/21 0747 - Medical Decision Making Labs noted as above, plan treat for UTI, follow-up with primary care doctor in 2 to 3 days. Return to emergency department should symptoms worsen. Critical care attestation.: If time is entered above; I have spent that time in minutes in the direct care of this critically ill patient, excluding procedure time. ED Disposition Clinical Impression: UTI (urinary tract infection) Qualifiers: Urinary tract infection type: acute cystitis Hematuria presence: without hem aturia Qualified Code(s): N30.00 - Acute cystitis without hematuria Disposition: HOME / SELF CARE / HOMELESS Is pt being admited?: No Does the pt Need Aspirin: No Condition: Stable Instructions: Abdominal Pain (ED), Urinary Tract Infection, Adult Additional Instructions: Take medications as prescribed, follow-up with your doctor in 2 to 3 days. Return to emergency department should symptoms worsen. Prescriptions: Sulfamethoxazole/Trimethoprim [Bactrim DS TAB] 1 each PO BID 7 Days #14 tablet Referrals: [facility] [Provider Group] - 3-5 Days BERT FLANAGAN MD [Staff Physician] - 3-5 Days Forms: Work/School Release Form(ED) Time of Disposition: 00:18
[2021-03-25 00:52] LABS: Total Cells Counted 100
[2021-03-25 00:54] LABS: Ovalocytes Few; Target Cells Rare
[2021-03-25 00:55] LABS: Platelet Estimate Consistent w Auto
[2021-03-25] MEDS ORDERED: cefTRIAXone/NS 1 GM/50 ML 1 GM/50 ML BAG IV ONE (02:00)
[2021-03-25] MEDS ORDERED: KETOROLAC 30 MG/1 ML INJ IV ONE (02:00)
[2021-03-25] MEDS ORDERED: SODIUM CHLORIDE 0.9% 1000 ML 1,000 ML IV ONE (02:00)
[2021-03-25] MEDS ORDERED: LIDOCAINE-MPF (1%) 10 MG/1 ML VIAL 5 ML INFILTRATI ONE (02:10)
[2021-03-25] MEDS ORDERED: KETOROLAC 60 MG/2 ML INJ IM ONE (02:10)
== END 2021-03-25 02:37 | disposition home or self-care (01) ==
LOC: ED 19:02
DX: N39.0 Urinary tract infection, site not specified (principal); F17.200 Nicotine dependence, unspecified, uncomplicated; J45.909 Unspecified asthma, uncomplicated; Z90.89 Acquired absence of other organs; Z72.89 Other problems related to lifestyle
CPT/HCPCS: 36415; 80048; 81001; 81025; 82150; 83690; 85007; 85025; 87086; 96372; 99283; J0696; J1885; J3490

== ENCOUNTER 2021-11-30 16:45 | Emergency (ER) | payer MEDICAID ==
[2021-11-30 23:35] LABS: HCG Qualitative,Urine Negative (Negative)
[2021-12-01 00:41] VITALS: BP 134/86
--- NOTE | 2021-12-01 00:41 | Emergency Department Report ---
ED Back Pain/Injury HPI - General Chief Complaint: Back Pain/Injury Stated Complaint: LOWER BACK PAIN Time Seen by Provider: 11/30/21 21:08 Source: patient Limitations: No Limitations - History of Present Illness Initial Comments: 26-year-old man female complaining back pain off and on since high school and went to sleep and when she woke up felt the pain across her back and a dull throbbing cramping fashion which is worse with palpation and range of motion and certain positions. Reports no loss of bowel bladder, no saddle paresthesia, that he does get occasional shooting pain to the right hip and leg. Reports no fever, chills, sweats MD Complaint: back pain Place: home Severity: mild Quality: dull - Related Data Previous Rx's Medication Instructions Recorded Last Taken Type Butalb/Acetaminophen/Caffeine 1 cap PO Q6HR PRN #14 cap 02/15/20 Unknown Rx [Fioricet 50-300-40 mg CAP] Ciprofloxacin HCl 500 mg PO BID #14 tablet 03/15/21 Unknown Rx Ondansetron [Zofran Odt] 4 mg PO Q8HR PRN #12 tab.rapdis 03/15/21 Unknown Rx metroNIDAZOLE [Flagyl] 500 mg PO Q12HR #14 tab 03/15/21 Unknown Rx Sulfamethoxazole/Trimethoprim 1 each PO BID 7 Days #14 tablet 03/25/21 Unknown Rx [Bactrim DS TAB] Ketorolac [Toradol] 10 mg PO Q6H PRN #15 tablet 12/01/21 Unknown Rx methOCARBAMOL [Robaxin TAB] 750 mg PO Q8H PRN #14 tablet 12/01/21 Unknown Rx Allergies Allergy/AdvReac Type Severity Reaction Status Date / Time No Known Allergies Allergy Verified 03/15/21 04:16 ED Review of Systems ROS: Stated complaint: LOWER BACK PAIN Other details as noted in HPI Comment: All other systems reviewed and negative ED Past Medical Hx - Past Medical History Hx Asthma: Yes - Surgical History Additional Surgical History: Tonsilectomy - Social History Smoking Status: Light Tobacco Smoker Substance Use Type: Alcohol - Medications Home Medications: Home Medications Medication Instructions Recorded Confirmed Last Taken Type Butalb/Acetaminophen/Caffeine 1 cap PO Q6HR PRN #14 cap 02/15/20 Unknown Rx [Fioricet 50-300-40 mg CAP] Ciprofloxacin HCl 500 mg PO BID #14 tablet 03/15/21 Unknown Rx Ondansetron [Zofran Odt] 4 mg PO Q8HR PRN #12 tab.rapdis 03/15/21 Unknown Rx metroNIDAZOLE [Flagyl] 500 mg PO Q12HR #14 tab 03/15/21 Unknown Rx Sulfamethoxazole/Trimethoprim 1 each PO BID 7 Days #14 tablet 03/25/21 Unknown Rx [Bactrim DS TAB] Ketorolac [Toradol] 10 mg PO Q6H PRN #15 tablet 12/01/21 Unknown Rx methOCARBAMOL [Robaxin TAB] 750 mg PO Q8H PRN #14 tablet 12/01/21 Unknown Rx ED Physical Exam - General Limitations: No Limitations General appearance: alert, in no apparent distress - Head Head exam: Present: atraumatic, normocephalic - Eye Eye exam: Present: normal appearance - ENT ENT exam: Present: mucous membranes moist - Neck Neck exam: Present: normal inspection - Respiratory Respiratory exam: Present: normal lung sounds bilaterally. Absent: respiratory distress - Cardiovascular Cardiovascular Exam: Present: regular rate, normal rhythm. Absent: systolic murmur, diastolic murmur, rubs, gallop - GI/Abdominal GI/Abdominal exam: Present: soft, normal bowel sounds - Extremities Exam Extremities exam: Present: normal inspection - Back Exam Back exam: Present: normal inspection, full ROM, muscle spasm, paraspinal tenderness, other (Negative straight leg raise some discomfort with Adrian's test). Absent: CVA tenderness (R), CVA tenderness (L), vertebral tenderness - Neurological Exam Neurological exam: Present: alert, oriented X3, CN II-XII intact - Psychiatric Psychiatric exam: Present: normal affect, normal mood - Skin Skin exam: Present: warm, dry, intact, normal color. Absent: rash ED Medical Decision Making - Medical Decision Making Pt presents the emergency department complaining of back pain most consistent with nonemergent back Pain Most Consistent with lumbago n. Differential Diagnosis Includes Lumbar Go Versus Musculoskeletal Spasm, Strain Versus Sciatica. No Back Pain Red Flags on History or Physical. Presentation Not Consistent with Malignancy, Fracture, Cauda Equina, Abdominal Aortic Aneurysm, Viscus Perforation, Pulmonary Embolism, Renal Colic, Pyelonephritis. Patient reports no B symptoms, trauma trauma, incontinence, saddle anesthesia, distal weakness, urinary symptoms and is a febrile. Critical care attestation.: If time is entered above; I have spent that time in minutes in the direct care of this critically ill patient, excluding procedure time. ED Disposition Clinical Impression: Lumbago with sciatica, right side Disposition: 01 HOME / SELF CARE / HOMELESS Is pt being admited?: No Does the pt Need Aspirin: No Condition: Stable Instructions: Radicular Pain, Sciatica, Sciatica, [id number], Acute Back Pain, Adult, Low Back Sprain or Strain Rehab-SportsMed Prescriptions: methOCARBAMOL [Robaxin TAB] 750 mg PO Q8H PRN #14 tablet PRN Reason: Pain, Moderate (4-6) Ketorolac [Toradol] 10 mg PO Q6H PRN #15 tablet PRN Reason: Pain Referrals: TIFFANY ENGLE MD [Primary Care Provider] - 3-5 Days
== END 2021-12-01 00:41 | disposition home or self-care (01) ==
LOC: ED 16:45
DX: M54.41 Lumbago with sciatica, right side (principal); J45.909 Unspecified asthma, uncomplicated; Z87.891 Personal history of nicotine dependence
CPT/HCPCS: 81025; 99283